=== PATIENT | male | born 1975 | race Caucasian/White ===

== ENCOUNTER 2024-09-08 19:24 | Emergency (ER) | payer BC, SELFPAY ==
[2024-09-08 19:29] VITALS: BP 156/122
[2024-09-08 19:59] LABS: % Basophils 0.6 % (0-2); % Eosinophils 0.2 % (0-6); % Immature Granulocytes 0.2 % (0-0.5); % Lymphocytes 16.8 % (20.5-51.1); % Monocytes 8.8 % (1.7-9.3); % Neutrophils 73.4 % (42.2-75.2); Absolute Lymphocytes 1.1 10^3/uL (1.2-3.4); Absolute Monocytes 0.6 10^3/uL (0.1-0.6); Absolute Neutrophils 4.9 10^3/uL (1.4-6.5); Hematocrit 48.4 % (39.0-52.0); Hemoglobin 17.4 g/dL (13.0-18.0); Mean Corpuscular Hgb 34.1 pg (27.0-31.0); Mean Corpuscular Volume 94.7 fL (80.0-94.0); Mean Platelet Volume 9.3 fL (7.4-10.4); Nucleated Red Blood Cells % 0 % (-); Platelet Count 252 10^3/uL (130-400); Red Blood Cell Count 5.11 10^6/uL (4.70-6.10); Red Cell Dist. Width 12.8 % (11.5-14.5); White Blood Cell Count 6.6 10^3/uL (4.8-10.8)
[2024-09-08 20:17] LABS: ALT (SGPT) 156 U/L (0-50); AST (SGOT) 137 U/L (17-59); Albumin 5.3 g/dl (3.5-5.0); Alkaline Phosphatase 79 U/L (38-126); Blood Urea Nitrogen 10 mg/dl (9-20); Calcium 10.1 mg/dl (8.4-10.2); Carbon Dioxide 25 mmol/L (22-30); Chloride 99 mmol/L (98-107); Glucose 98 mg/dl (70-99); Potassium 4.2 mmol/L (3.5-5.1); Sodium 137 mmol/L (135-145); eGFR > 60.00
[2024-09-08 20:23] LABS: Troponin I < 0.012 ng/ml
[2024-09-08 21:20] LABS: Lipase 71 U/L (23-300)
[2024-09-08 21:57] VITALS: BP 175/126
--- NOTE | 2024-09-08 22:34 | ED.GENMED ---
History of Present Illness
General
Chief Complaint: Chest Pain
Time Seen by Provider: 09/08/24 21:45
History of Present Illness
History of Present Illness:
49-year-old man with history of asthma presenting to the emergency department palpitations. Patient states that at 4 PM he was sitting when he developed palpitations. 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 He
did develop some chest pain during it. Checked his blood pressure and it was elevated. He does state that his heart rate was slightly elevated as well. No travel malignancy hemoptysis or leg swelling. He does state that a few weeks ago he
stopped using a protein powder that was known to cause liver damage. He does state that he was drinking alcohol however stopped that recently. He does note that he drinks a significant amount of caffeine at this time patient just notices an
occasional palpitation. No chest pain. No shortness of breath. No nausea vomiting. He denies any family history of cardiac disease. No exertional chest pain. No syncopal events.
Phy Exam
Physical Exam
Physical Exam:
GENERAL: in no acute distress
HEENT: normocephalic, extraocular movements intact, moist oral mucosa
NECK: normal inspection
RESPIRATORY: no respiratory distress, clear to auscultation bilaterally
CARDIOVASCULAR: regular rate and rhythm, systolic murmur over the superior left sternal border
ABDOMEN/: soft, non-distended, non-tender to palpation, no rebound or guarding
EXTREMITIES: non-tender, no edema/swelling
NEUROLOGIC: awake and alert, moves all extremities
SKIN: warm
Scores
Heart Score for Chest Pain Patients
STEMI patient?: Not applicable
Course
Orders/Labs/Results
Orders:
Orders
09/08/24 19:24
Electrocardiogram (*1) Urgent
Reason for Study: Chest Pain
EKG- Treatment ONCE
09/08/24 19:36
Complete Blood Count/With Diff Urgent
Comprehensive Metabolic Panel Urgent
D-Dimer Urgent
Lipase Urgent
Comment: ADD ON
Magnesium Urgent
Comment: ADDON
TSH Reflex To Free T4 Urgent
Comment: ADDON
Troponin I Urgent
09/08/24 20:59
Add On- LAB Urgent
Tests Added?: lipase
09/08/24 22:18
Add On- LAB Urgent
Tests Added?: magnesium, thyroid with reflex
09/08/24 23:33
Troponin I Urgent
Abnormal Lab Results
09/08/24
19:36
MCV 94.7 H fL
(80.0-94.0)
MCH 34.1 H pg
(27.0-31.0)
Absolute Lymphs (auto) 1.1 L 10^3/uL
(1.2-3.4)
Lymphocytes % 16.8 L %
(20.5-51.1)
AST 137 H U/L
(17-59)
ALT 156 H U/L
(0-50)
Albumin 5.3 H g/dl
(3.5-5.0)
09/08/24 19:36
09/08/24 19:36
Vital Signs
Initial and Last Documented VS:
Initial Vital Signs
Temp Pulse Resp BP Pulse Ox
98.6 F 99 16 156/122 97
09/08/24 19:29 09/08/24 19:29 09/08/24 19:29 09/08/24 19:29 09/08/24 19:29
Last Documented Vital Signs
Temp Pulse Resp BP Pulse Ox
98.6 F 90 16 164/119 100
09/08/24 19:29 09/09/24 01:54 09/09/24 01:54 09/09/24 01:54 09/09/24 01:54
MDM/Problems Addressed
Differential Diagnosis Includes:
Patient is a 49-year-old man presenting to the emergency department with palpitations. Vitals are unremarkable and exam does show systolic murmur over the pulmonary artery. Differential is broad but consists of electrolyte derangement versus
thyroid abnormality. Certainly could be secondary to the caffeine intake. History exam less likely to be ACS. Blood work obtained prior to my evaluation is unremarkable. Troponin is negative. Dimer is negative. Will add on magnesium and
thyroid cascade. LFT is slightly elevated. He does state that he was drinking a energy protein powder that was known to cause liver problems. Regarding the murmur patient will follow-up with cardiology. For Holter monitor as well as echo. EKG
obtained prior to evaluation per my interpretation is normal sinus rhythm no signs of LVH or axis deviation.
*Critical Care Note
Total Time (30-74mins, 75-104mins- exclusive of procedures): Not Applicable
Update Note
Update Note:
Delta troponin negative. Magnesium thyroid cascade normal. On reevaluation patient feels much better. We did discuss following cardiology for echo as well as Holter monitor. He will follow-up with primary care doctor to have repeat blood work
done for his LFTs. Will discharge at this time. Strict return precautions given
ED Attending Note
-
Portions of this chart may have been created with voice recognition software.� Occasional wrong word or��sound alike� substitutions may have occurred due to the inherent limitations of voice recognition software.
Discharge Plan
Departure
Patient Disposition: Home (Routine Discharge)
Date of Disposition: 09/09/24
Time of Disposition: 00:27
Patient with high blood pressure during this ER visit?: Yes
Discharge Problem:
Heart palpitations, Transaminitis
Instructions: Chest Pain NON-DHP Gis Analyst Developer Follow Up
Referrals:
Samuel Bills MD [Active] -
Tenthstephanie,Vanessa Watkins MD [Family Provider] -
Activity Restrictions/Additional Instructions:
You were evaluated in the Emergency Department today for palpitations and a new murmur. Your evaluation has shown no signs of medical conditions requiring emergent intervention at this time, however we recommend that you follow up with your primary
care physician or your dialysis biomed technician as soon as possible for further testing as an outpatient.
Please also make sure you follow-up with your primary care doctor regarding your liver function elevation.
Please schedule an appointment for follow up with your primary care physician as soon as possible.
Return to the Emergency Department if you experience worsening or uncontrolled chest pain, shortness of breath, light headedness, feeling faint, nausea, vomiting, or any other concerning symptoms.
Thank you for choosing us for your care.
Interventions
Interventions:
*Risk Screen - Suicide Last Done: 09/08/24 19:31
*General Assessment Last Done: 09/08/24 21:59
*Neglect/Abuse Screening Last Done: 09/08/24 19:31
ED- Fall Risk Assessment Last Done: 09/08/24 23:15
*ED COVID-19 Vaccine History Last Done: 09/08/24 19:30
*Nursing Disposition Last Done: 09/09/24 00:45
ED- Cardiac Assessment Last Done: 09/08/24 23:15
Discharge Date and Time
Discharge Date/Time: 09/09/24 00:45
Print Language: PERSIAN
[2024-09-08 22:37] LABS: Magnesium 1.9 mg/dl (1.6-2.3)
[2024-09-08 23:08] LABS: TSH Reflex To Free T4 3.13 uIU/ml (0.47-4.68)
[2024-09-08 23:24] VITALS: BP 179/118
[2024-09-09 00:12] LABS: Troponin I 0.016 ng/ml
[2024-09-09 01:54] VITALS: BP 164/119
== END 2024-09-09 00:45 | disposition home or self-care (01) ==
LOC: EMR 19:24
PROVIDERS: Emergency Medicine; EMERGENCY PHYSICIAN Student in an Organized Health Care Education/Training Program; FAMILY PHYSICIAN Family Medicine
DX: R00.2 Palpitations (principal); R07.9 Chest pain, unspecified; R74.01 Elevation of levels of liver transaminase levels; R03.0 Elevated blood-pressure reading, without diagnosis of hypertension; R01.1 Cardiac murmur, unspecified; J45.909 Unspecified asthma, uncomplicated
CPT/HCPCS: 99284; 80053; 83690; 83735; 84443; 84484; 85025; 85379; 93005